=== PATIENT | female | born 1980 | race Caucasian/White ===

== ENCOUNTER 2023-04-29 15:35 | Emergency (ER) | payer OTHER ==
[2023-04-29] MEDS ORDERED: SODIUM CHLORIDE 0.9% 500 ML INFUS.BAG IV ONE (15:42)
[2023-04-29] MEDS ORDERED: ONDANSETRON 4 MG/2 ML VIAL IVPUSH ONE (15:42)
[2023-04-29 16:17] VITALS: BP 115/62; PULSE 98; RESP 16; TEMP 98.8; BMI 23.4
[2023-04-29 16:26] LABS: HEMATOCRIT 48.2 % (32.4-45.2); HEMOGLOBIN 16.3 G/dL (10.7-15.3); INR 1.08 (0.83-1.09); MCH 29.8 pg (25.7-33.7); MCHC 33.8 g/dl (32.0-36.0); MEAN CELL VOLUME 88.3 fl (80-96); MEAN PLT VOLUME 9.1 fl (7.5-11.1); PLATELET COUNT 188.4 10^3/uL (134-434); PROTHROMBIN TIME (PATIENT) 12.5 SEC (9.7-13.0); RBC 5.46 10^6/uL (3.60-5.2); WHITE BLOOD COUNT 5.4 10^3/uL (4.0-10.8)
[2023-04-29 16:28] LABS: ACTIVATED PTT 29.1 SECONDS (25.2-36.5)
[2023-04-29] MEDS ORDERED: ONDANSETRON 4 MG/2 ML VIAL ONE (16:30)
[2023-04-29 16:39] LABS: ALBUMIN 4.2 g/dl (3.4-5.0); BILIRUBIN,TOTAL 0.5 mg/dl (0.2-1); CALCIUM 9.1 mg/dl (8.5-10.1); CREATININE 0.7 mg/dl (0.6-1.3); MAGNESIUM 1.9 mg/dL (1.8-2.4); POTASSIUM 3.9 mmol/L (3.5-5.1); TOT PROT 6.7 g/dl (6.4-8.2)
[2023-04-29 16:47] LABS: PLATELET ESTIMATE ADEQUATE
== END 2023-04-29 17:13 | disposition home or self-care (01) ==
LOC: FER 15:35
PROC: 3E033GC Introduction of Other Therapeutic Substance into Peripheral Vein, Percutaneous Approach (ICD-10-PCS; principal; 2023-04-29)
DX: R07.9 Chest pain, unspecified (principal); R09.89 Other specified symptoms and signs involving the circulatory and respiratory systems; R05.9 Cough, unspecified; R51.9 Headache, unspecified; R09.81 Nasal congestion; R11.2 Nausea with vomiting, unspecified; R19.7 Diarrhea, unspecified; J02.9 Acute pharyngitis, unspecified; R68.2 Dry mouth, unspecified; M79.10 Myalgia, unspecified site; R50.9 Fever, unspecified
CPT/HCPCS: 36415; 71275-TC; 80053; 83735; 84484; 84703; 85027; 85610; 85730; 93005; 99285-25; Q9967

== ENCOUNTER 2023-07-15 18:42 | Emergency (ER) | payer OTHER ==
[2023-07-15 18:56] VITALS: BP 118/82; PULSE 54; RESP 20; TEMP 99.1; BMI 26.7
[2023-07-15 20:09] LABS: HEMATOCRIT 43.5 % (32.4-45.2); HEMOGLOBIN 14.2 G/dL (10.7-15.3); MCH 29.4 pg (25.7-33.7); MCHC 32.6 g/dl (32.0-36.0); MEAN CELL VOLUME 90.1 fl (80-96); PLATELET COUNT 201.5 10^3/uL (134-434); RBC 4.83 10^6/uL (3.60-5.2); RDW 13.7 % (11.6-15.6); WHITE BLOOD COUNT 9.5 10^3/uL (4.0-10.8)
[2023-07-15 20:20] LABS: ALBUMIN 4.1 g/dl (3.4-5.0); BILIRUBIN,TOTAL 0.5 mg/dl (0.2-1); CALCIUM 9.3 mg/dl (8.5-10.1); CREATININE 0.7 mg/dl (0.6-1.3); POTASSIUM 3.9 mmol/L (3.5-5.1)
== END 2023-07-15 20:41 | disposition home or self-care (01) ==
LOC: FER 18:42
DX: R10.30 Lower abdominal pain, unspecified (principal); R30.0 Dysuria; R10.2 Pelvic and perineal pain
CPT/HCPCS: 36415; 80053; 81003; 81015; 85027; 87086; 87186; 99283-25

== ENCOUNTER 2025-01-14 21:11 | Emergency (ER) | payer OTHER ==
[2025-01-14 21:22] VITALS: BP 113/71; PULSE 75; RESP 18; TEMP 98.2; BMI 33.3
[2025-01-14] MEDS ORDERED: ONDANSETRON 4 MG/2 ML VIAL ONE ×2 (21:54→23:22)
[2025-01-14] MEDS: SODIUM CHLORIDE 1,000 ML IV ONE (22:14)
[2025-01-14] MEDS: ONDANSETRON 4 MG/2 ML VIAL IVPUSH ONE ×2 (22:14→23:28)
[2025-01-14 22:17] LABS: ABSOLUTE IMMATURE GRANULOCYTES 0.02 x10^3/uL (0.0-0.031); BASOPHILS # 0.01 x10^3/uL (0.01-0.08); EOSINOPHIL % 0.4 % (0.7-5.8); EOSINOPHILS # 0.04 x10^3/uL (0.04-0.36); MCHC 33.3 g/dl (32.2-35.5); MEAN CELL VOLUME 89.7 fl (79.4-94.8); MEAN PLT VOLUME 10.3 fl (9.4-12.3); MONOCYTE # 0.72 x10^3/uL (0.24-0.86); MONOCYTE % 7.1 % (4.7-12.5); RDW 12.0 % (12.2-17.1)
[2025-01-14 22:34] LABS: ALK PHOS 50.0 U/L (45-117); CO2 26.0 mmol/L (21-32); CREATININE 0.6 mg/dl (0.6-1.3); GLUCOSE,RANDOM 104.0 mg/dl (74-106); SGOT/AST 15.0 U/L (15-37); SGPT/ALT 12.0 U/L (7-52); TOT PROT 6.4 g/dl (6.4-8.2)
[2025-01-15] MEDS ORDERED: ACETAMINOPHEN INJECTION 100 ML ONE (00:54)
[2025-01-15] MEDS: ACETAMINOPHEN 1000 MG/100 ML BAG IVPB ONE (00:55)
== END 2025-01-15 02:36 | disposition home or self-care (01) ==
LOC: FER 21:11
PROC: 3E033GC Introduction of Other Therapeutic Substance into Peripheral Vein, Percutaneous Approach (ICD-10-PCS; principal; 2025-01-14)
PROC: 3E033GC Introduction of Other Therapeutic Substance into Peripheral Vein, Percutaneous Approach (ICD-10-PCS; 2025-01-14)
PROC: 3E0337Z Introduction of Electrolytic and Water Balance Substance into Peripheral Vein, Percutaneous Approach (ICD-10-PCS; 2025-01-14)
PROC: 3E033NZ Introduction of Analgesics, Hypnotics, Sedatives into Peripheral Vein, Percutaneous Approach (ICD-10-PCS; 2025-01-15)
DX: R11.2 Nausea with vomiting, unspecified (principal); R19.7 Diarrhea, unspecified; R10.30 Lower abdominal pain, unspecified
CPT/HCPCS: 36415; 74177-TC; 80053; 83690; 85025; 99285-25